=== PATIENT | male | born 1995 | race Two or more races ===

== ENCOUNTER 2017-07-10 20:18 | Emergency (ER) | payer OTHER ==
[2017-07-10 20:23] VITALS: RESP 18
--- NOTE | 2017-07-10 20:33 | CPEKG ---
Heart Rate: 68 RR Interval: 882 P-R Interval: 100 QRSD Interval: 110 QT Interval: 384 QTC Interval: 409 P [place]: 60 QRS [place]: 47 T Wave [place]: 68 EKG Severity - ABNORMAL ECG - EKG Impression: SINUS RHYTHM EKG Impression: SHORT AR INTERVAL, ACCELERATED AV CONDUCTION EKG Impression: INCOMPLETE RIGHT BUNDLE BRANCH BLOCK Electronically Signed By: Perla Mcknight 12-Jul-2017 07:36:41
--- NOTE | 2017-07-10 20:37 | EDPHY ---
General Narrative: CHIEF COMPLAINT: Chest pain HISTORY OF PRESENT ILLNESS: Patient complains of left-sided chest pain. This started this morning when he awoke. Described as a burning sensation. [id number]. No predictable exacerbating factors, including no worse with inspiration or exertion. Does not radiate. No nausea or sweating. No shortness of breath. No cough. No recent illness. No recent travel, trauma or surgery. No history of venous thrombolic event. No extremity erythema edema or pain. No cardiac diagnoses otherwise. No other associated complaints or modifying factors. REVIEW OF SYSTEMS: Ten systems reviewed and are negative unless otherwise noted in the HPI PCP: None locally SPECIALISTS: None PAST MEDICAL HISTORY: Denies any medical history PAST SURGICAL HISTORY: No surgical history SOCIAL HISTORY: Nonsmoker. [employer] student. Originally from [facility] FAMILY HISTORY: Noncontributory EXAMINATION General Appearance: Alert, no distress Head: normocephalic, atraumatic Eyes: Pupils equal and round, no conjunctival pallor or injection ENT, Mouth: Mucous membranes moist Neck: Normal inspection, supple, non-tender Respiratory: Lungs are clear to auscultation Cardiovascular: Regular rate and rhythm. No murmur. Symmetric radial pulses 2 + Gastrointestinal: Abdomen is soft and nontender Back: non-tender, no bony abnormalities Neurological: A&O, nonfocal, normal gait Skin: Grossly intact. Warm and dry, no rash. No petechiae or purpura. Extremities: Nontender, no pedal edema Psychiatric: Mood and affect normal DIFFERENTIAL DIAGNOSES: Including but not limited to ACS, PE, conduction delay, pericarditis, pleurisy MDM: 8:35 p.m. Left-sided chest pain of approximately 12 hr duration. Nonexertional. Does not radiate. Negative [place] HEART score. Negative Wells criteria. EKG does suggest the possibility of WPW as reviewed with Dr. Chaidez. Vital signs are all within normal limits. He is resting comfortably in no acute distress. Baseline laboratory studies ordered. Chest x-ray ordered. We will consult Cardiology to review the EKG. 9:10 a.m. CBC unremarkable. Chemistry within normal limits. D-dimer is negative. Chest x-ray is unremarkable as read by radiologist. Patient has remained on a surveillance monitor with no change in his chest pain. EKG was reviewed between Dr. Chaidez and cardiology, and there is short GA interval with no other abnormality. I have re-evaluated the patient. At this time I do not have a clear etiology but he is resting comfortably in no acute distress. I have ordered a GI cocktail to be given prior to discharge home. Recommend further antacids if this helps. Recommend follow up with primary care physician. Recommend ED precautions for any worsening pain, exertional pain, shortness of breath or fever. Patient is comfortable with this plan and discharged home stable condition. EKG interpretation: Dr. Chaidez SUPERVISION: Patient was independently examined, but I discussed the case with my secondary supervising physician Dr. Chaidez - Diagnostics Imaging Results: Imaging Impressions Chest X-Ray 07/10/17 20:37 IMPRESSION: Normal chest x-ray. - History Smoking Status: Never smoked - Objective Vital Signs: Initial Vital Signs Temperature (C) 98.1 F 07/10/17 20:19 Heart Rate 89 07/10/17 20:19 Respiratory Rate 18 07/10/17 20:19 Blood Pressure 134/81 H 07/10/17 20:19 O2 Sat (%) 98 07/10/17 20:19 O2 Delivery Mode Room Air Allergies/Adverse Reactions: No Known Allergies Allergy (Verified 07/10/17 20:23) Home Medications: Medication Instructions Recorded NK [No Known Home Meds] 07/10/17 Laboratory Results: Laboratory Results 07/10/17 20:30 07/10/17 20:30 07/10/17 07/10/17 07/10/17 20:30 20:30 20:30 WBC 4.94 10^3/uL 10^3/uL (3.80-9.50) RBC 5.15 10^6/uL 10^6/uL (4.40-6.38) Hgb 14.8 g/dL g/dL (13.7-17.5) Hct 43.8 % % (40.0-51.0) MCV 85.0 fL fL (81.5-99.8) MCH 28.7 pg pg (27.9-34.1) MCHC 33.8 g/dL g/dL (32.4-36.7) RDW 12.6 % % (11.5-15.2) Plt Count 213 10^3/uL 10^3/uL (150-400) MPV 9.8 fL fL (8.7-11.7) Neut % (Auto) 42.3 % % (39.3-74.2) Lymph % (Auto) 49.6 % H % (15.0-45.0) Bledsoe % (Auto) 5.9 % % (4.5-13.0) Eos % (Auto) 1.4 % % (0.6-7.6) Baso % (Auto) 0.6 % % (0.3-1.7) Nucleat RBC Rel Count 0.0 % % (0.0-0.2) Absolute Neuts (auto) 2.09 10^3/uL 10^3/uL (1.70-6.50) Absolute Lymphs (auto) 2.45 10^3/uL 10^3/uL (1.00-3.00) Absolute Monos (auto) 0.29 10^3/uL L 10^3/uL (0.30-0.80) Absolute Eos (auto) 0.07 10^3/uL 10^3/uL (0.03-0.40) Absolute Basos (auto) 0.03 10^3/uL 10^3/uL (0.02-0.10) Absolute Nucleated RBC 0.00 10^3/uL 10^3/uL (0-0.01) Immature Gran % 0.2 % % (0.0-1.1) Immature Gran # 0.01 10^3/uL 10^3/uL (0.00-0.10) D-Dimer < 0.27 ug/mLFEU ug/mLFEU (0.00-0.50) Sodium 141 mEq/L mEq/L (135-145) Potassium 3.5 mEq/L mEq/L (3.5-5.2) Chloride 101 mEq/L mEq/L (97-110) Carbon Dioxide 22 mEq/l mEq/l (22-31) Anion Gap 18 mEq/L H mEq/L (8-16) BUN 16 mg/dL mg/dL (7-23) Creatinine 1.0 mg/dL mg/dL (0.7-1.3) Estimated GFR > 60 Glucose 88 mg/dL mg/dL (70-100) Calcium 9.9 mg/dL mg/dL (8.5-10.4) TSH Pending Departure - Departure Disposition: Home, Routine, Self-Care Clinical Impression: Chest pain Qualifiers: Chest pain type: unspecified Qualified Code(s): R07.9 - Chest pain, unspecified Condition: Good Instructions: Chest Pain (ED) Additional Instructions: 1. Follow up with the on-call primary care physician as provided 2. ED precautions for any worsening pain, exertional pain, shortness of breath, fever 3. Maalox over the counter as discussed as needed Referrals: Elizabeth Sainz MD [Medical Doctor] - As per Instructions
[2017-07-10 20:59] LABS: PLATELET COUNT 213 10^3/uL (150-400)
[2017-07-10] MEDS ORDERED: LIDOCAINE 2% VISCOUS 15 ML UDCUP PO ONE (21:18)
[2017-07-10] MEDS ORDERED: HYOSCYAMINE SULFATE 0.125 MG TAB PO ONE (21:18)
[2017-07-10] MEDS ORDERED: MAG HYDROX/AL HYDROX/SIMETH 30 ML UDCUP PO ONE (21:18)
[2017-07-10 21:33] VITALS: BP 111/64; PULSE 62; TEMP 98.4; O2SAT 97
== END 2017-07-10 21:32 | disposition home or self-care (01) ==
DX: R07.9 Chest pain, unspecified (principal)

== ENCOUNTER 2018-10-12 09:51 | Emergency (ER) | payer OTHER ==
[2018-10-12 09:56] VITALS: BP 121/77
--- NOTE | 2018-10-12 09:59 | EDPHY ---
H & P Stated Complaint: ? Rectal abcess x 1 day--? right buttucks pain Time Seen by Provider: 10/12/18 09:56 HPI/ROS: HPI: This is a 22-year-old male who presents with Chief Complaint: Right buttock skin infection and pain Location: Right buttock Quality: Infection and pain Duration: 2 days Signs and Symptoms: No bleeding, no radiation, no numbness, no weakness, no tingling, no incontinence, no decreased range of motion, no swelling, + pain, no fever, no discharge, + redness Timing: Gradually worsening Severity: Mild Context: Reports that he has a sore on his right buttocks that has gradually increased in size over the last 2 days. He reports that this year he has not shave his body is often and has had multiple ingrown hairs. No history of diabetes mellitus. He reports that he is unable to sit down due to the pain. Complains that the area is red and tender to touch. Denies fevers, discharge, difficulty defecating. Modifying Factors: None Comment: ROS: A comprehensive 10 system review of systems is otherwise negative aside from elements mentioned in the history of present illness. MEDICAL/SURGICAL/SOCIAL HISTORY: Medical history: Generally healthy. Does not take any regular medications. Surgical history: Denies Social history: International student at [employer]. Smokes tobacco products. Drinks alcohol socially. CONSTITUTIONAL: Extremely well-appearing male, awake and alert, no obvious distress HEENT: Atraumatic and normocephalic, PERRL, EOMI. Nares patent; no rhinorrhea; no nasal mucosal edema. Tympanic membranes clear. Oropharynx clear, no exudate and moist pink mucosa. Airway patent. No lymphadenopathy. No meningismus. Cardiovascular: Normal S1/S2, regular rate, regular rhythm, without murmur rub or gallop. PULMONARY/CHEST: Symmetrical and nontender. Clear to auscultation bilaterally. Good air movement. No accessory muscle usage. ABDOMEN: Soft, nondistended, nontender, no rebound, no guarding, no peritoneal signs, no masses or organomegaly. No CVAT. EXTREMITIES: 2/2 pulses, strength 5/5, no deformities, no clubbing, no cyanosis or edema. NEUROLOGICAL: no focal neuro deficits. GCS 15. SKIN: Warm and dry, 2 cm raised furuncle on right buttock with no surrounding erythema; + fluctuance middle with whitish color. no rash. Good capillary refill. Source: Patient Exam Limitations: No limitations - Medical/Surgical History Hx Asthma: No Hx Chronic Respiratory Disease: No Hx Diabetes: No Hx Cardiac Disease: No Hx Renal Disease: No Hx Cirrhosis: No Hx Alcoholism: No Hx HIV/AIDS: No Hx Splenectomy or Spleen Trauma: No Other PMH: bicuspid aortic valve - Social History Smoking Status: Never smoked Constitutional: Initial Vital Signs Temperature (C) 36.8 C 10/12/18 09:53 Heart Rate 78 10/12/18 09:53 Respiratory Rate 16 10/12/18 09:53 Blood Pressure 121/77 H 10/12/18 09:53 O2 Sat (%) 97 10/12/18 09:53 O2 Delivery Mode Room Air Allergies/Adverse Reactions: No Known Allergies Allergy (Verified 10/12/18 09:56) Home Medications: Medication Instructions Recorded Cephalexin [Keflex (*)] 500 mg PO TID #21 cap 10/12/18 Medical Decision Making Procedures: Procedure: Abscess drainage. The patient's abscess was located on the right buttock. I obtained verbal consent from the patient to drain the abscess who was informed about the possibility of bleeding and pain. The abscess was incised with #11 scalpel and a 3 mL amount of purulent drainage was expressed. I irrigated the wound and placed bacitracin and clean sterile dressing. The patient tolerated the procedure well. The procedure was performed by myself. ED Course/Re-evaluation: Vital signs reviewed and stable. no systemic signs. Tetanus is up-to-date. Abscess I&D performed Irrigated thoroughly, bacitracin clean sterile dressing applied Prescription for Keflex provided Verbal and written wound care instructions given This patient was seen under the supervision of my secondary supervising physician. I evaluated and cared for this patient independently. Differential Diagnosis: Differential diagnosis includes but is not limited to cellulitis, abscess. Departure - Departure Disposition: Home, Routine, Self-Care Clinical Impression: Furuncle of buttock Condition: Good Instructions: Furunculosis and Carbunculosis (ED) Additional Instructions: Keep the dressing dry and in place for 24 hours. After 48 hours, you may remove the dressing; wash the site daily with mild soap and water; then pat dry. Apply topical antibiotic ointment and keep covered with sterile dressing until fully healed. Take Tylenol 650 mg every 4 hours and/or Ibuprofen 600 mg every 8 hours with food as needed for pain. Apply warm compresses for 30 minutes at a time; 2-3 times per day for the next 1 -2 days. Take antibiotic as directed. Do not skip a dose. Referrals: [facility],. [Clinic] - As per Instructions Prescriptions: Cephalexin [Keflex (*)] 500 mg PO TID #21 cap
== END 2018-10-12 10:20 | disposition home or self-care (01) ==
PROC: 0H98XZZ Drainage of Buttock Skin, External Approach (ICD-10-PCS; principal; 2018-10-12)
DX: L02.32 Furuncle of buttock (principal)